=== PATIENT | female | born 1995 | race Caucasian/White ===

== ENCOUNTER 2020-11-02 20:50 | Emergency (ER) | payer OTHER ==
[~2020-11-02 20:50] MED LIST: ATARAX25 MG PO; BROMFED DM COU473 ML PO; ESCITALOPRAM OX10 MG PO; MEDROL 4MG DOSEP4 MG PO; TAMIFLU 75MG CA75 MG PO; TESSALON PERLE100 M1 PO; TRI-SPRINTEC T1 EACH PO; VENTOLIN HFA18 GM INH; VIBRAMYCIN100 M1 PO
[2020-11-02 21:27] LABS: BASOPHIL 0.5 % (0-2); EOSINOPHIL 0.8 % (0-5); HCT 42.9 % (37.0-47.0); HGB 14.2 g/dl (12.5-16.0); LYMPHOCYTE 36.4 % (15-48); MCH 30.1 pg (25.0-31.0); MCHC 33.1 g/dL (32.0-36.0); MCV 91.1 fL (78.0-100.0); MPV 9.8 fL (6.0-9.5); NEUTROPHIL 57.1 % (41-80); NRBC 0; PLT 427 K/uL (150-400); RBC 4.71 M/uL (4.20-5.40); RDW 11.9 % (11.5-14.0); WBC 10.3 K/uL (4.0-10.5)
[2020-11-02 21:32] LABS: AMPHETAMINES NEGATIVE (NEGATIVE); BARBITURATES NEGATIVE (NEGATIVE); ECSTASY (MDMA) NEGATIVE (NEGATIVE); MARIJUANA (THC) NEGATIVE (NEGATIVE); METHADONE NEGATIVE (NEGATIVE); OPIATES NEGATIVE (NEGATIVE); OXYCODONE NEGATIVE (NEGATIVE)
[2020-11-02 21:33] LABS: BILIRUBIN NEGATIVE (NEGATIVE); BLOOD TRACE-INTACT Ery/uL (NEGATIVE); CLARITY CLEAR (CLEAR); COLOR YELLOW (YELLOW); GLUCOSE (U) NORMAL (NORMAL); LEUKOCYTES NEGATIVE Leu/uL (NEGATIVE); NITRITE NEGATIVE (NEGATIVE); PROTEIN NEGATIVE (NEGATIVE); SPECIFIC GRAVITY 1.025 (1.001-1.030); pH 7.5 (5.0-9.0)
[2020-11-02 21:37] LABS: BACTERIA 1+; URINARY RBC RARE
[2020-11-02 21:41] LABS: ALBUMIN 3.7 g/dL (3.4-5.0); ALKALINE PHOSHATASE 87 U/L (46-116); ALT 23 U/L (14-59); AST 14 U/L (15-37); BILIRUBIN - TOTAL 0.2 mg/dL (0.2-1.0); BUN 11 mg/dL (7-18); BUN/CREAT RATIO (CALC) 14.5 RATIO; CHLORIDE 104 mmol/L (98-107); CO2 (BICARBONATE) 27 mmol/L (21-32); CREATININE 0.76 mg/dL (0.51-0.95); GLOBULIN (CALCULATION) 4.3 g/dL; GLUCOSE 123 mg/dL (74-106); POTASSIUM 3.6 mmol/L (3.5-5.1)
[2020-11-02 21:42] LABS: ACETAMINOPHEN (TYLENOL) < 2.0 ug/mL (10.0-30.0)
== END 2020-11-03 04:00 | disposition other institution (70) ==
LOC: FER 20:50
PROVIDERS: Emergency Medicine Emergency Medical Services
DX: R07.89 Other chest pain (principal); F32.9 Major depressive disorder, single episode, unspecified; R00.0 Tachycardia, unspecified; F41.9 Anxiety disorder, unspecified; Z79.899 Other long term (current) drug therapy; Z88.0 Allergy status to penicillin; Z20.822 Contact with and (suspected) exposure to COVID-19
CPT/HCPCS: 36415; 71045; 80053; 80305; 81001; 84484; 85025; 93005; G0480; J1885; J2060; J7030; U0002

== ENCOUNTER 2020-12-22 14:13 | Emergency (ER) | payer OTHER ==
[2020-12-22 15:30] LABS: BASOPHIL 0.7 % (0-2); HCT 41.5 % (37.0-47.0); HGB 13.9 g/dl (12.5-16.0); LYMPHOCYTE 38.7 % (15-48); MCH 30.3 pg (25.0-31.0); MCHC 33.5 g/dL (32.0-36.0); MCV 90.4 fL (78.0-100.0); MONOCYTE 7.1 % (0-12); MPV 9.6 fL (6.0-9.5); NEUTROPHIL 51.3 % (41-80); NRBC 0; PLT 353 K/uL (150-400); RBC 4.59 M/uL (4.20-5.40); RDW 11.9 % (11.5-14.0); WBC 6.1 K/uL (4.0-10.5)
[2020-12-22 15:55] LABS: ALBUMIN 3.5 g/dL (3.4-5.0); BILIRUBIN - TOTAL 0.2 mg/dL (0.2-1.0); BUN/CREAT RATIO (CALC) 13.4 RATIO; CREATININE 0.67 mg/dL (0.51-0.95); GLOBULIN (CALCULATION) 4.5 g/dL; MAGNESIUM 1.8 mg/dL (1.8-2.4); POTASSIUM 4.2 mmol/L (3.5-5.1)
== END 2020-12-22 17:23 | disposition home or self-care (01) ==
LOC: FER 14:13
PROVIDERS: Emergency Medicine
DX: R00.2 Palpitations (principal); M79.601 Pain in right arm; I45.10 Unspecified right bundle-branch block
CPT/HCPCS: 36415; 71045; 80053; 83735; 84484; 85025; 85379; 93005

== ENCOUNTER 2021-01-11 23:56 | Day surgery (SDCO) | payer OTHER ==
[2021-01-12 01:03] LABS: BASOPHIL 0.2 % (0-2); EOSINOPHIL 0 % (0-5); HGB 14.4 g/dl (12.5-16.0); LYMPHOCYTE 6.2 % (15-48); MCH 30.6 pg (25.0-31.0); MCHC 34.3 g/dL (32.0-36.0); MCV 89.2 fL (78.0-100.0); MONOCYTE 2.1 % (0-12); MPV 9.8 fL (6.0-9.5); NEUTROPHIL 91.1 % (41-80); NRBC 0; PLT 395 K/uL (150-400); RBC 4.71 M/uL (4.20-5.40); RDW 11.9 % (11.5-14.0); WBC 20.3 K/uL (4.0-10.5)
[2021-01-12 01:07] LABS: BILIRUBIN NEGATIVE (NEGATIVE); BLOOD 1+ Ery/uL (NEGATIVE); CLARITY CLEAR (CLEAR); COLOR YELLOW (YELLOW); GLUCOSE (U) NORMAL (NORMAL); LEUKOCYTES NEGATIVE Leu/uL (NEGATIVE); NITRITE NEGATIVE (NEGATIVE); PROTEIN 1+ mg/dL (NEGATIVE); UROBILINOGEN 0.2 mg/dL (0.2-1.0); pH 6.5 (5.0-9.0)
[2021-01-12 01:16] LABS: BACTERIA TRACE; URINARY WBC RARE
[2021-01-12 01:18] LABS: ALBUMIN 3.3 g/dL (3.4-5.0); BILIRUBIN - TOTAL 0.2 mg/dL (0.2-1.0); BUN/CREAT RATIO (CALC) 20.3 RATIO; CREATININE 0.69 mg/dL (0.51-0.95); GLOBULIN (CALCULATION) 4.8 g/dL; POTASSIUM 3.8 mmol/L (3.5-5.1); TOTAL PROTEIN 8.1 g/dL (6.4-8.2)
[2021-01-12] MEDS ORDERED: FOLIC ACID1 M1 PO (05:40)
[2021-01-12] MEDS ORDERED: VENLAFAXINE HCL75 M1 PO (05:41)
[2021-01-12] MEDS ORDERED: ORTHO TRI-CYCL1 EACH PO (05:43)
[2021-01-12] MEDS ORDERED: GUMMI BEAR MUL1 EACH PO (05:45)
[2021-01-12] MEDS ORDERED: CLARITIN10 MG PO (05:47)
[2021-01-12] MEDS ORDERED: MELATONIN 5 MG1 EACH PO (05:48)
[2021-01-12 07:26] LABS: BASOPHIL 0.2 % (0-2); EOSINOPHIL 0.1 % (0-5); HCT 36.3 % (37.0-47.0); HGB 12.2 g/dl (12.5-16.0); LYMPHOCYTE 17.4 % (15-48); MCH 30.4 pg (25.0-31.0); MCHC 33.6 g/dL (32.0-36.0); MCV 90.5 fL (78.0-100.0); MONOCYTE 4.4 % (0-12); MPV 9.5 fL (6.0-9.5); NEUTROPHIL 77.6 % (41-80); NRBC 0; PLT 333 K/uL (150-400); RBC 4.01 M/uL (4.20-5.40); RDW 12.2 % (11.5-14.0); WBC 12.8 K/uL (4.0-10.5)
[2021-01-12 07:43] LABS: BUN/CREAT RATIO (CALC) 16.4 RATIO; CREATININE 0.61 mg/dL (0.51-0.95)
[2021-01-13 05:07] LABS: BASOPHIL 0.5 % (0-2); EOSINOPHIL 2.3 % (0-5); HCT 36.9 % (37.0-47.0); HGB 12.7 g/dl (12.5-16.0); LYMPHOCYTE 37.6 % (15-48); MCH 30.8 pg (25.0-31.0); MCHC 34.4 g/dL (32.0-36.0); MCV 89.6 fL (78.0-100.0); MONOCYTE 4.2 % (0-12); MPV 9.4 fL (6.0-9.5); NEUTROPHIL 55.2 % (41-80); NRBC 0; PLT 288 K/uL (150-400); RBC 4.12 M/uL (4.20-5.40); WBC 8.6 K/uL (4.0-10.5)
[2021-01-13 05:56] LABS: BUN/CREAT RATIO (CALC) 9.9 RATIO; CREATININE 0.71 mg/dL (0.51-0.95); MAGNESIUM 1.6 mg/dL (1.8-2.4); POTASSIUM 3.8 mmol/L (3.5-5.1)
[2021-01-13] MEDS ORDERED: ZOFRAN4 M1 PO (09:44)
[2021-01-13] MEDS ORDERED: NORCO 5-325 TA1 EACH PO (09:44)
== END 2021-01-13 11:30 | disposition home or self-care (01) ==
LOC: FER 23:56 → FMS 01-12 02:57
PROVIDERS: Emergency Medicine Emergency Medical Services; Nurse Practitioner; ADMIT Internal Medicine
DX: K52.9 Noninfective gastroenteritis and colitis, unspecified (principal); E86.0 Dehydration; D72.829 Elevated white blood cell count, unspecified; U07.1 COVID-19; F41.1 Generalized anxiety disorder; F32.9 Major depressive disorder, single episode, unspecified; E53.8 Deficiency of other specified B group vitamins; Z88.1 Allergy status to other antibiotic agents; Z79.899 Other long term (current) drug therapy
CPT/HCPCS: 36415; 80048; 80053; 81001; 83605; 83690; 83735; 84145; 84703; 85025; 87040; G0378; J1885; J2270; J2405; J3475; J7030; J7120; Q9967

== ENCOUNTER 2021-01-17 11:26 | Emergency (ER) | payer OTHER ==
[~2021-01-17 11:26] MED LIST changes: +CLARITIN10 MG PO; +FOLIC ACID1 M1 PO; +GUMMI BEAR MUL1 EACH PO; +MELATONIN 5 MG1 EACH PO; +NORCO 5-325 TA1 EACH PO; +ORTHO TRI-CYCL1 EACH PO; +VENLAFAXINE HCL75 M1 PO; +ZOFRAN4 M1 PO
[2021-01-17 13:33] LABS: BASOPHIL 0.5 % (0-2); EOSINOPHIL 1.4 % (0-5); HCT 41.7 % (37.0-47.0); HGB 14.3 g/dl (12.5-16.0); LYMPHOCYTE 32.6 % (15-48); MCH 30.6 pg (25.0-31.0); MCHC 34.3 g/dL (32.0-36.0); MCV 89.1 fL (78.0-100.0); MONOCYTE 5.1 % (0-12); MPV 9.5 fL (6.0-9.5); NEUTROPHIL 60.2 % (41-80); NRBC 0; PLT 351 K/uL (150-400); RBC 4.68 M/uL (4.20-5.40); RDW 11.9 % (11.5-14.0); WBC 6.3 K/uL (4.0-10.5)
[2021-01-17 13:53] LABS: BILIRUBIN NEGATIVE (NEGATIVE); BLOOD 3+ Ery/uL (NEGATIVE); CLARITY CLEAR (CLEAR); COLOR YELLOW (YELLOW); GLUCOSE (U) NORMAL (NORMAL); LEUKOCYTES NEGATIVE Leu/uL (NEGATIVE); NITRITE NEGATIVE (NEGATIVE); PROTEIN 1+ mg/dL (NEGATIVE); SPECIFIC GRAVITY 1.025 (1.001-1.030); UROBILINOGEN 0.2 mg/dL (0.2-1.0)
[2021-01-17 13:59] LABS: BACTERIA TRACE; URINARY RBC 20-50
[2021-01-17 14:37] LABS: ALBUMIN 3.6 g/dL (3.4-5.0); BILIRUBIN - TOTAL 0.3 mg/dL (0.2-1.0); BUN/CREAT RATIO (CALC) 12.7 RATIO; CREATININE 0.71 mg/dL (0.51-0.95); GLOBULIN (CALCULATION) 4.3 g/dL; TOTAL PROTEIN 7.9 g/dL (6.4-8.2)
[2021-01-17] MEDS ORDERED: CITRATE OF MAG296 ML PO (14:38)
== END 2021-01-17 15:13 | disposition home or self-care (01) ==
LOC: FER 11:26
PROVIDERS: Emergency Medicine
DX: K59.00 Constipation, unspecified (principal); R11.0 Nausea; Z88.0 Allergy status to penicillin; Z86.16 Personal history of COVID-19
CPT/HCPCS: 36415; 74022; 80053; 81001; 85025

== ENCOUNTER 2021-01-18 12:11 | Emergency (ER) | payer OTHER ==
[~2021-01-18 12:11] MED LIST changes: +CITRATE OF MAG296 ML PO
== END 2021-01-18 13:34 | disposition home or self-care (01) ==
LOC: FER 12:11
DX: K59.00 Constipation, unspecified (principal); R11.0 Nausea; Z88.0 Allergy status to penicillin
CPT/HCPCS: 99283

== ENCOUNTER 2021-04-06 11:07 | Emergency (ER) | payer OTHER ==
[2021-04-06 15:06] LABS: BILIRUBIN NEGATIVE (NEGATIVE); BLOOD TRACE-INTACT Ery/uL (NEGATIVE); CLARITY CLEAR (CLEAR); GLUCOSE (U) NORMAL (NORMAL); LEUKOCYTES NEGATIVE Leu/uL (NEGATIVE); NITRITE NEGATIVE (NEGATIVE); PROTEIN NEGATIVE (NEGATIVE); SPECIFIC GRAVITY 1.015 (1.001-1.030); UROBILINOGEN 0.2 mg/dL (0.2-1.0); pH 7.5 (5.0-9.0)
[2021-04-06 15:13] LABS: COLOR YELLOW (YELLOW)
[2021-04-06 15:14] LABS: BACTERIA TRACE; URINARY RBC RARE
[2021-04-06] MEDS ORDERED: NAPROXEN500 MG PO (17:24)
== END 2021-04-06 18:03 | disposition home or self-care (01) ==
LOC: FER 11:07
PROVIDERS: Physician Assistant
DX: B34.9 Viral infection, unspecified (principal); F41.9 Anxiety disorder, unspecified; F32.9 Major depressive disorder, single episode, unspecified; Z88.1 Allergy status to other antibiotic agents; Z88.0 Allergy status to penicillin; Z20.822 Contact with and (suspected) exposure to COVID-19; Z79.899 Other long term (current) drug therapy
CPT/HCPCS: 81001; 87880; 99284; J1885; U0002

== ENCOUNTER 2021-04-16 11:10 | Emergency (ER) | payer OTHER ==
[~2021-04-16 11:10] MED LIST changes: +NAPROXEN500 MG PO
[2021-04-16 12:19] LABS: BILIRUBIN NEGATIVE (NEGATIVE); BLOOD 1+ Ery/uL (NEGATIVE); CLARITY CLEAR (CLEAR); COLOR YELLOW (YELLOW); GLUCOSE (U) NORMAL (NORMAL); LEUKOCYTES 1+ Leu/uL (NEGATIVE); NITRITE NEGATIVE (NEGATIVE); PROTEIN NEGATIVE (NEGATIVE); SPECIFIC GRAVITY 1.015 (1.001-1.030); UROBILINOGEN 0.2 mg/dL (0.2-1.0); pH 7.5 (5.0-9.0)
[2021-04-16 12:21] LABS: BASOPHIL 0 % (0-2); EOSINOPHIL 0 % (0-5); HGB 14.1 g/dl (12.5-16.0); LYMPHOCYTE 27.7 % (15-48); MCH 29.6 pg (25.0-31.0); MCHC 33.6 g/dL (32.0-36.0); MCV 88.2 fL (78.0-100.0); MONOCYTE 7.7 % (0-12); MPV 9.2 fL (6.0-9.5); NEUTROPHIL 64.3 % (41-80); NRBC 0; PLT 349 K/uL (150-400); RBC 4.76 M/uL (4.20-5.40); RDW 11.9 % (11.5-14.0); WBC 5.7 K/uL (4.0-10.5)
[2021-04-16 12:38] LABS: BACTERIA 1+
[2021-04-16 12:40] LABS: ALBUMIN 3.5 g/dL (3.4-5.0); BILIRUBIN - TOTAL 0.2 mg/dL (0.2-1.0); BUN/CREAT RATIO (CALC) 15.8 RATIO; CREATININE 0.57 mg/dL (0.51-0.95); GLOBULIN (CALCULATION) 4.2 g/dL; POTASSIUM 3.9 mmol/L (3.5-5.1); TOTAL PROTEIN 7.7 g/dL (6.4-8.2)
[2021-04-16] MEDS ORDERED: ZOFRAN4 M1 PO (19:30)
[2021-04-16] MEDS ORDERED: KEFLEX250 MG PO (19:30)
[2021-04-18 08:10] LABS: HIV SCREEN 4TH GENERATION WRFX Non Reactive (Non Reactive)
[2021-04-18 19:50] LABS: CORONAVIRUS 229E NOT DETECTED (NOT DETECT); CORONAVIRUS HKU1 NOT DETECTED (NOT DETECT); CORONAVIRUS NL63 NOT DETECTED (NOT DETECT); CORONAVIRUS OC43 NOT DETECTED (NOT DETECT); HUMAN METAPNEUMO NOT DETECTED (NOT DETECT); INFLUENZA A NOT DETECTED (NOT DETECT); INFLUENZA A 2009 H1N1 NOT DETECTED (NOT DETECT); INFLUENZA A H1 NOT DETECTED (NOT DETECT); INFLUENZA A H3 NOT DETECTED (NOT DETECT); INFLUENZA B NOT DETECTED (NOT DETECT); PARAINFLUENZA 1 NOT DETECTED (NOT DETECT); PARAINFLUENZA 2 DETECTED (NOT DETECT); PARAINFLUENZA 3 NOT DETETED (NOT DETECT); PARAINFLUENZA 4 NOT DETECTED (NOT DETECT); RESPIRATORY SYNCYTIAL VIRUS NOT DETECTED (NOT DETECT)
[2021-04-18 19:51] LABS: B. PERTUSSIS DNA NOT DETECTED (NOT DETECT); CHLAMYDOPHILA PNEUMON DNA PCR NOT DETECTED (NOT DETECT); CORONAVIRUS 2019 PCR NOT DETECTED (NOT DETECTD); MYCOPLASMA PNEUMONIAE NOT DETECTED (NOT DETECT)
== END 2021-04-16 20:00 | disposition home or self-care (01) ==
LOC: FER 11:10
PROVIDERS: Emergency Medicine; Internal Medicine
DX: J02.9 Acute pharyngitis, unspecified (principal); N39.0 Urinary tract infection, site not specified; Z88.0 Allergy status to penicillin
CPT/HCPCS: 36415; 71275; 80053; 81001; 84484; 85025; 86593; 87040; 87389; 93005; J0696; J2405; J7030; Q9967

== ENCOUNTER 2021-06-21 18:41 | Emergency (ER) | payer OTHER ==
[~2021-06-21 18:41] MED LIST changes: +KEFLEX250 MG PO
[2021-06-21 20:20] LABS: BASOPHIL 0 % (0-2); EOSINOPHIL 0 % (0-5); HCT 40.2 % (37.0-47.0); HGB 13.5 g/dl (12.5-16.0); LYMPHOCYTE 40.8 % (15-48); MCH 29.8 pg (25.0-31.0); MCHC 33.6 g/dL (32.0-36.0); MCV 88.7 fL (78.0-100.0); MONOCYTE 5.3 % (0-12); MPV 9.2 fL (6.0-9.5); NEUTROPHIL 53.7 % (41-80); NRBC 0; PLT 365 K/uL (150-400); RBC 4.53 M/uL (4.20-5.40); WBC 6.2 K/uL (4.0-10.5)
[2021-06-21 20:35] LABS: ALBUMIN 3.4 g/dL (3.4-5.0); BILIRUBIN - TOTAL 0.1 mg/dL (0.2-1.0); BUN/CREAT RATIO (CALC) 12.7 RATIO; CREATININE 0.63 mg/dL (0.51-0.95); GLOBULIN (CALCULATION) 4.3 g/dL; POTASSIUM 3.7 mmol/L (3.5-5.1); TOTAL PROTEIN 7.7 g/dL (6.4-8.2)
[2021-06-21] MEDS ORDERED: FIORICET1 EACH PO (22:54)
[2021-06-21] MEDS ORDERED: IMITREX50 M1 PO (22:54)
== END 2021-06-21 23:10 | disposition home or self-care (01) ==
LOC: FER 18:41
PROVIDERS: Emergency Medicine
DX: G43.101 Migraine with aura, not intractable, with status migrainosus (principal); Z88.0 Allergy status to penicillin
CPT/HCPCS: 36415; 70450; 70490; 80053; 85025; J1170; J1200; J1885; J2765; J7030; Q9967

== ENCOUNTER 2021-08-02 18:05 | Emergency (ER) | payer OTHER ==
[~2021-08-02 18:05] MED LIST changes: +FIORICET1 EACH PO; +IMITREX50 M1 PO
[2021-08-02 20:23] LABS: BASOPHIL 0 % (0-2); EOSINOPHIL 0.2 % (0-5); HCT 41.6 % (37.0-47.0); HGB 13.7 g/dl (12.5-16.0); MCH 29.3 pg (25.0-31.0); MCHC 32.9 g/dL (32.0-36.0); MCV 88.9 fL (78.0-100.0); MONOCYTE 6.1 % (0-12); NEUTROPHIL 58.6 % (41-80); NRBC 0; PLT 452 K/uL (150-400); RBC 4.68 M/uL (4.20-5.40); RDW 12.3 % (11.5-14.0); WBC 9.2 K/uL (4.0-10.5)
[2021-08-02 20:50] LABS: BUN/CREAT RATIO (CALC) 9.5 RATIO; CREATININE 0.63 mg/dL (0.51-0.95); POTASSIUM 3.9 mmol/L (3.5-5.1)
[2021-08-02 21:44] LABS: BILIRUBIN NEGATIVE (NEGATIVE); BLOOD 3+ Ery/uL (NEGATIVE); COLOR YELLOW (YELLOW); GLUCOSE (U) NORMAL (NORMAL); LEUKOCYTES NEGATIVE Leu/uL (NEGATIVE); NITRITE NEGATIVE (NEGATIVE); PROTEIN TRACE (LOW) mg/dL (NEGATIVE); SPECIFIC GRAVITY 1.025 (1.001-1.030); UROBILINOGEN 0.2 mg/dL (0.2-1.0); pH 7.5 (5.0-9.0)
[2021-08-02 21:55] LABS: CLARITY CLOUDY (CLEAR)
[2021-08-02 21:56] LABS: AMPHETAMINES NEGATIVE (NEGATIVE); BARBITURATES NEGATIVE (NEGATIVE); ECSTASY (MDMA) NEGATIVE (NEGATIVE); MARIJUANA (THC) NEGATIVE (NEGATIVE); METHADONE NEGATIVE (NEGATIVE); OPIATES NEGATIVE (NEGATIVE); OXYCODONE NEGATIVE (NEGATIVE)
[2021-08-02 21:58] LABS: AMORPHOUS URATES CRYSTALS TRACE; MUCOUS TRACE; SQUAMOUS EPITHELIAL CELLS RARE
[2021-08-02 22:09] LABS: CORONAVIRUS 2019 SARS-COV-2 NEGATIVE (NEGATIVE); INFLUENZA A NAA NEGATIVE (NEGATIVE)
== END 2021-08-02 19:04 | disposition home or self-care (01) ==
LOC: FER 18:05
PROVIDERS: Internal Medicine
DX: J02.8 Acute pharyngitis due to other specified organisms (principal); J32.9 Chronic sinusitis, unspecified; H66.91 Otitis media, unspecified, right ear; Z20.822 Contact with and (suspected) exposure to COVID-19; Z88.0 Allergy status to penicillin
CPT/HCPCS: 36415; 80048; 80305; 81001; 84145; 84484; 85025; 87880; 93005; J2060; J2930; J7120; U0002

== ENCOUNTER 2021-09-13 14:51 | Emergency (ER) | payer OTHER ==
[2021-09-13 16:34] LABS: BASOPHIL 0.1 % (0-2); EOSINOPHIL 0.1 % (0-5); HGB 13.3 g/dl (12.5-16.0); LYMPHOCYTE 9.8 % (15-48); MCH 29.7 pg (25.0-31.0); MCHC 33.3 g/dL (32.0-36.0); MCV 89.3 fL (78.0-100.0); MONOCYTE 6.4 % (0-12); MPV 9.1 fL (6.0-9.5); NEUTROPHIL 83.4 % (41-80); NRBC 0; PLT 349 K/uL (150-400); RBC 4.48 M/uL (4.20-5.40); RDW 12.6 % (11.5-14.0)
[2021-09-13 16:42] LABS: BUN/CREAT RATIO (CALC) 10.6 RATIO; CREATININE 0.66 mg/dL (0.51-0.95); POTASSIUM 3.9 mmol/L (3.5-5.1)
[2021-09-13 17:08] LABS: INFLUENZA A NAA NEGATIVE (NEGATIVE)
[2021-09-13 17:11] LABS: CORONAVIRUS 2019 SARS-COV-2 POSITIVE (NEGATIVE)
[2021-09-13] MEDS ORDERED: ONDANSETRON ODT4 MG PO (18:07)
[2021-09-14] MEDS ORDERED: ONDANSETRON ODT4 MG PO (22:50)
== END 2021-09-13 19:07 | disposition home or self-care (01) ==
LOC: FER 14:51
PROVIDERS: Nurse Practitioner Family
DX: U07.1 COVID-19 (principal); Z88.0 Allergy status to penicillin
CPT/HCPCS: 36415; 80048; 85025; J2405; J7030; U0002

== ENCOUNTER 2021-09-14 17:22 | Emergency (ER) | payer OTHER ==
[~2021-09-14 17:22] MED LIST changes: +ONDANSETRON ODT4 MG PO
[2021-09-14 21:38] LABS: HCT 39.4 % (37.0-47.0); MCH 29.7 pg (25.0-31.0); MPV 9.6 fL (6.0-9.5); RBC 4.38 M/uL (4.20-5.40); RDW 12.9 % (11.5-14.0)
[2021-09-14 21:40] LABS: BUN/CREAT RATIO (CALC) 10.4 RATIO; CREATININE 0.67 mg/dL (0.51-0.95); POTASSIUM 3.8 mmol/L (3.5-5.1)
[2021-09-14] MEDS ORDERED: ONDANSETRON ODT4 MG PO (22:50)
== END 2021-09-15 00:08 | disposition home or self-care (01) ==
LOC: FER 17:22
PROVIDERS: Emergency Medicine
DX: U07.1 COVID-19 (principal); Z88.0 Allergy status to penicillin
CPT/HCPCS: 36415; 80048; J1885; J2405; J7030

== ENCOUNTER 2022-02-01 08:23 | Emergency (ER) | payer OTHER ==
[2022-02-01 09:46] LABS: BASOPHIL 0 % (0-2); EOSINOPHIL 0.2 % (0-5); HCT 42.2 % (37.0-47.0); HGB 13.8 g/dl (12.5-16.0); LYMPHOCYTE 37.4 % (15-48); MCH 29.9 pg (25.0-31.0); MCHC 32.7 g/dL (32.0-36.0); MCV 91.3 fL (78.0-100.0); MONOCYTE 6.3 % (0-12); MPV 9.5 fL (6.0-9.5); NEUTROPHIL 55.9 % (41-80); NRBC 0; PLT 357 K/uL (150-400); RBC 4.62 M/uL (4.20-5.40); RDW 11.9 % (11.5-14.0); WBC 5.1 K/uL (4.0-10.5)
[2022-02-01 10:01] LABS: BILIRUBIN NEGATIVE (NEGATIVE); BLOOD NEGATIVE Ery/uL (NEGATIVE); CLARITY CLEAR (CLEAR); COLOR YELLOW (YELLOW); GLUCOSE (U) NORMAL (NORMAL); LEUKOCYTES 1+ Leu/uL (NEGATIVE); NITRITE NEGATIVE (NEGATIVE); PROTEIN NEGATIVE (NEGATIVE); SPECIFIC GRAVITY 1.015 (1.001-1.030); UROBILINOGEN 0.2 mg/dL (0.2-1.0)
[2022-02-01 10:06] LABS: ALBUMIN 3.5 g/dL (3.4-5.0); BILIRUBIN - TOTAL 0.2 mg/dL (0.2-1.0); BUN/CREAT RATIO (CALC) 17.9 RATIO; CREATININE 0.67 mg/dL (0.51-0.95); GLOBULIN (CALCULATION) 4.3 g/dL; POTASSIUM 3.8 mmol/L (3.5-5.1); TOTAL PROTEIN 7.8 g/dL (6.4-8.2)
[2022-02-01 10:09] LABS: BACTERIA 2+
[2022-02-01 10:38] LABS: LACTIC ACID 1.5 mmol/L (0.4-1.9)
[2022-02-06] MEDS ORDERED: ONDANSETRON ODT4 MG PO (00:03)
[2022-02-06] MEDS ORDERED: PHENERGAN25 M1 PO (00:03)
[2022-02-06] MEDS ORDERED: NORCO 5-325 TA1 EACH PO (00:03)
== END 2022-02-01 11:56 | disposition home or self-care (01) ==
LOC: FER 08:23
PROVIDERS: Emergency Medicine
DX: R10.31 Right lower quadrant pain (principal); K59.00 Constipation, unspecified; R11.2 Nausea with vomiting, unspecified; Z88.0 Allergy status to penicillin
CPT/HCPCS: 36415; 80053; 81001; 83605; 83690; 84145; 85025; J2270; J2405; J7030; Q9967